=== PATIENT | female | born 1980 | race Caucasian/White ===

== ENCOUNTER → 2022-03-16 13:13 | Outpatient (BNVA) | payer OTHER, SELFPAY | PROVIDERS: PCP Family Medicine; Visit Provider Physician Assistant Medical | DX: S61.452A Open bite of left hand, initial encounter (principal); W50.3XXA Accidental bite by another person, initial encounter | CPT/HCPCS: 99202 ==

== ENCOUNTER → 2022-08-26 13:34 | Outpatient (REF) | payer OTHER, SELFPAY ==
--- NOTE | 2022-08-26 13:38 | CA_ITS ---
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 The visually estimated ejection fraction is between 60-65%. - There is mild to moderate tricuspid valve regurgitation. - Mild pulmonary hypertension is present. Findings Left Ventricle Normal left ventricular cavity size. There is normal left ventricular wall thickness. The left ventricular systolic function is normal. The visually estimated ejection fraction is between 60-65%. There is no evidence of regional wall motion abnormalities. Diastolic function is normal for age. LV peak GLS -22.6%. Right Ventricle Normal right ventricular cavity size and systolic function. Atria Both atria are normal in size. Aortic Valve There is a normal trileaflet aortic valve. There is no aortic valve stenosis. There is no aortic valve regurgitation. Mitral Valve The mitral valve appears normal. There is mild mitral valve regurgitation. There is no mitral valve stenosis. Pulmonic Valve The pulmonic valve is likely normal. Tricuspid Valve Normal tricuspid valve structure. There is mild to moderate tricuspid valve regurgitation. The right ventricular systolic pressure is 38 mmHg. Mild pulmonary hypertension is present. Great Vessels The asc aorta is normal in size. Venous The inferior vena cava is normal in size and collapses greater than 50% with inspiration. Pericardium/Pleural There is no evidence of pericardial effusion. Prior Study Comparison No prior study available for comparison. Measurements 2D Linear Measurements RVIDd: 3.56 RVIDd Index: 1.95 IVSd: 1.01 0.6-0.9/0.6-1.0 cm LVIDd: 4.26 3.9-5.3/4.2-5.9 cm LVIDd Index: 2.33 2.4-3.2/2.2-3.1 cm/m2 LVIDs: 2.52 2.0-3.6 cm LVPWd: 1.01 0.7-1.1 cm Ao Root: 2.40 2.1-3.5 cm LA Diam: 3.80 2.7-3.8/3.0-4.0 cm LAIDs Index: 2.08 1.5-2.3 cm/m2 LV Mass: 177.18 67-162/88-224 g LV Mass Index: 96.82 43-95/49-115 g/m2 LVOT Diam: 2.00 3.0+(-)1.3 cm 2D Systolic Function EF 4C: 60.80 >55% EF 2C: 58.40 >55% EF BiP: 57.60 >55% Mitral Valve MV Pk E: 0.85 MV PK A: 0.95 MV Decel Time: 166.00 E/A: 0.90 E'Lateral: 14.50 E'Medial: 9.36 E/E' Med: 9.10 E/E' Lat: 5.90 PHT: 49.00 MVA PHT: 4.49 Decel Brooks: 5.13 Aortic Valve AoV Pk Yordy: 1.65 AoV Mn Yordy: 1.08 AoV VTI: 0.41 AoV Pk Grad: 11.00 Aov Mn Grad: 6.00 MADHU Cont.VTI: 2.40 LVOT LVOT Pk Yordy: 1.34 LVOT Mn Yordy: 0.87 LVOT VTI: 0.31 LVOT Pk Grad: 7.00 LVOT Mn Grad: 4.00 LVOT Diam: 2.00 LVOT Area: 3.14 Diastolic Function MV Pk E: 0.85 MV Pk A: 0.95 E/A: 0.90 E'Medial: 9.36 E/E' Med: 9.10 E' Laterial: 14.50 E/E' Lat: 5.90 Right Ventricle TAPSE (mm): 29.00 TVS' Yordy: 13.00 Tricuspid Valve TR Pk Yordy: 2.97 TR Pk Grad: 35.00 RA Press: 3.00 RVSP: 38.00 Great Vessels Aorta Ao Root-2D: 2.40 2.0-3.7 cm Ao Asc: 2.60 2.1-3.4 cm Ao Arch: 3.00 Pulmonary Valve PV Pk Yordy: 1.34 Peak PV Grad: 7.00 Updated in Other Vendor System with Status of Final Trino Patel MD electronically signed on 08/27/2022 3:23:43 PM with status of Final
== END ==
LOC: HO.CARD 13:34
PROVIDERS: PCP Family Medicine; Visit Provider Family Medicine
DX: R01.1 Cardiac murmur, unspecified (principal)
CPT/HCPCS: 93306; 93356